=== PATIENT | female | born 1975 | race African-American/Black ===

== ENCOUNTER 2018-03-02 13:20 | Inpatient (IN) | payer OTHER ==
[~2018-03-02] VITALS: Ht 170.2 cm; Wt 99.3 kg
[~2018-03-02 13:20] MED LIST: DOCU-109 PO; HYDR-2758 PO; NAPR220T70 PO; ONDA4TAB10 SL; OXYC-323 PO
--- NOTE | 2018-03-02 13:54 | RAD ---
Portable chest, 03/02/2018: HISTORY: Chest pain, SVT The heart size and pulmonary vascularity are normal. No pulmonary infiltrate is seen. There is no evidence of pleural fluid. IMPRESSION: No acute cardiopulmonary abnormality is detected. Electronically signed by: Beny Perez MD (03/02/2018 1:51 PM) [facility]
--- NOTE | 2018-03-02 13:58 | EKG ---
[facility] [address] [place] [address] Test Date: 2018-03-02 Test Time: 13:27:14 Pat Name: EUGENIO GURROLA Department: Room: Gender: F Detective Sergeant: : 1975 Requested By: RAJESH FAYE Order Number: [id number] Reading MD: Hu Fam Measurements Intervals [place] Rate: 90 P: 54 UT: 146 QRS: 61 QRSD: 80 T: 28 QT: 350 QTc: 432 Interpretive Statements SINUS RHYTHM NORMAL ECG No previous ECG available for comparison Electronically Signed On 03-03-2018 11:27:26 CDT by Hu Fam
[2018-03-02 13:59] LABS: BARBITURATES NEG (NEG); BENZODIAZEPINES NEG (NEG); CANNABINOIDS NEG (NEG); COCAINE NEG (NEG); METHADONE NEG (NEG); OPIATES NEG (NEG); PHENCYCLIDINE NEG (NEG)
[2018-03-02] MEDS ORDERED: ASPIRIN CHEWABLE 81 MG TABLET. PO ONE (14:00)
[2018-03-02] MEDS ORDERED: IV NORMAL SALINE 500ML BAG 500 ML IV ONE (14:00)
[2018-03-02 14:01] LABS: AMPHETAMINE/METHAMPHETAMINE NEG (NEG)
[2018-03-02 14:15] LABS: BASO % 1 % (0-3); EOS # 0.1 x10^3/uL (0.0-0.7); EOS % 1 % (0-3); HEMATOCRIT 37.5 % (36.0-47.0); LYMPH # 1.9 x10^3/uL (1.0-4.8); LYMPH % 34 % (24-48); MEAN CORPUSCULAR HEMOGLOBIN 28 pg (25-35); MEAN CORPUSCULAR HGB CONC 35 g/dL (31-37); MEAN CORPUSCULAR VOLUME 81 fL (79-100); MONO # 0.4 x10^3/uL (0.0-1.1); MONO % 7 % (0-9); NEUT # 3.1 x10^3uL (1.8-7.7); NEUT % 57 % (31-73); PLATELET COUNT 234 x10^3/uL (140-400); RED BLOOD COUNT 4.62 x10^6/uL (3.50-5.40); RED CELL DISTRIBUTION WIDTH 13.7 % (11.5-14.5); WHITE BLOOD COUNT 5.5 x10^3/uL (4.0-11.0)
--- NOTE | 2018-03-02 14:21 | PHYS DOC ---
Past Medical History Past Medical History: No Pertinent History Past Surgical History: Oophorectomy Additional Past Surgical Histo: Rt hip Additional Information: Denies smoking Alcohol Use: None Drug Use: None Adult General Chief Complaint Chief Complaint: palpitation and chest pain HPI HPI Patient is a 42 year old female who was in by EMS because of chest pain and palpitation. Patient states she was driving and suddenly felt a pause in her heart and then had palpitation with substernal chest pain, shortness of breath, lightheadedness and dizziness that last about 5 minutes before arrival of EMS. EMS reported that patient had SVT with heart of 220 that resolved with Valsalva maneuver to sinus rhythm. She denies history of any medical problems or previous palpitation and using drugs and alcohol or recent dehydration. Patient stated her pain was 9 daily episodes of SVT and dropped to 5 at arrival to ER. Review of Systems Review of Systems Constitutional: Denies fever or chills [] Eyes: Denies change in visual acuity, redness, or eye pain [] HENT: Denies nasal congestion or sore throat [] Respiratory: Denies cough or shortness of breath [] Cardiovascular: No additional information not addressed in HPI [] GI: Denies abdominal pain, nausea, vomiting, bloody stools or diarrhea [] : Denies dysuria or hematuria [] Musculoskeletal: Denies back pain or joint pain [] Integument: Denies rash or skin lesions [] Neurologic: Denies headache, focal weakness or sensory changes [] Endocrine: Denies polyuria or polydipsia [] All other systems were reviewed and found to be within normal limits, except as documented in this note. Current Medications Current Medications Current Medications Medications (Trade) Dose Ordered Sig/Eze Start Time Stop Time Status Last Admin Dose Admin Aspirin (Children'S Aspirin) 324 mg 1X ONCE 03/02/18 14:00 03/02/18 14:05 DC 03/02/18 14:40 324 MG Sodium Chloride 500 ml @ 500 mls/hr 1X ONCE 03/02/18 14:00 03/02/18 14:59 DC 03/02/18 14:40 500 MLS/HR Allergies Allergies Allergies Coded Allergies Type Severity Reaction Last Updated Verified No Known Drug Allergies 01/10/15 No Physical Exam Physical Exam Constitutional: Well developed, well nourished, mild distress, non-toxic appearance. [] HENT: Normocephalic, atraumatic, bilateral external ears normal, oropharynx moist, no oral exudates, nose normal. [] Eyes: PERRLA, EOMI, conjunctiva normal, no discharge. [] Neck: Normal range of motion, no tenderness, supple, no stridor. [] Cardiovascular:Heart rate regular rhythm, no murmur [] Lungs & Thorax: Bilateral breath sounds clear to auscultation [] Abdomen: Bowel sounds normal, soft, no tenderness, no masses, no pulsatile masses. [] Skin: Warm, dry, no erythema, no rash. [] Back: No tenderness, no CVA tenderness. [] Extremities: No tenderness, no cyanosis, no clubbing, ROM intact, no edema. [] Neurologic: Alert and oriented X 3, normal motor function, normal sensory function, no focal deficits noted. [] Psychologic: Affect normal, judgement normal, mood normal. [] Current Patient Data Lab Values Laboratory Tests Test 03/02/18 13:35 03/02/18 13:46 03/02/18 14:00 Urine Opiates Screen Neg (NEG) Urine Methadone Screen Neg (NEG) Urine Barbiturates Neg (NEG) Urine Phencyclidine Screen Neg (NEG) Urine Amphetamine/Methamphetamine Neg (NEG) Urine Benzodiazepines Screen Neg (NEG) Urine Cocaine Screen Neg (NEG) Urine Cannabinoids Screen Neg (NEG) Urine Ethyl Alcohol Neg (NEG) POC Urine HCG, Qualitative Hcg negative (Negative) White Blood Count 5.5 x10^3/uL (4.0-11.0) Red Blood Count 4.62 x10^6/uL (3.50-5.40) Hemoglobin 13.0 g/dL (12.0-15.5) Hematocrit 37.5 % (36.0-47.0) Mean Corpuscular Volume 81 fL (79-100) Mean Corpuscular Hemoglobin 28 pg (25-35) Mean Corpuscular Hemoglobin Concent 35 g/dL (31-37) Red Cell Distribution Width 13.7 % (11.5-14.5) Platelet Count 234 x10^3/uL (140-400) Neutrophils (%) (Auto) 57 % (31-73) Lymphocytes (%) (Auto) 34 % (24-48) Monocytes (%) (Auto) 7 % (0-9) Eosinophils (%) (Auto) 1 % (0-3) Basophils (%) (Auto) 1 % (0-3) Neutrophils # (Auto) 3.1 x10^3uL (1.8-7.7) Lymphocytes # (Auto) 1.9 x10^3/uL (1.0-4.8) Monocytes # (Auto) 0.4 x10^3/uL (0.0-1.1) Eosinophils # (Auto) 0.1 x10^3/uL (0.0-0.7) Basophils # (Auto) 0.0 x10^3/uL (0.0-0.2) Prothrombin Time 12.6 SEC (11.7-14.0) Prothrombin Time INR 1.0 (0.8-1.1) Sodium Level 141 mmol/L (136-145) Potassium Level 3.5 mmol/L (3.5-5.1) Chloride Level 106 mmol/L (98-107) Carbon Dioxide Level 21 mmol/L (21-32) Anion Gap 14 (6-14) Blood Urea Nitrogen 11 mg/dL (7-20) Creatinine 1.0 mg/dL (0.6-1.0) Estimated GFR (Cockcroft-Gault) 72.9 BUN/Creatinine Ratio 11 (6-20) Glucose Level 104 mg/dL (70-99) H Calcium Level 9.0 mg/dL (8.5-10.1) Magnesium Level 1.9 mg/dL (1.8-2.4) Total Bilirubin 0.4 mg/dL (0.2-1.0) Aspartate Amino Transferase (AST) 18 U/L (15-37) Alanine Aminotransferase (ALT) 32 U/L (14-59) Alkaline Phosphatase 91 U/L (46-116) Creatine Kinase 116 U/L (26-192) Troponin I Quantitative < 0.017 ng/mL (0.000-0.055) Total Protein 8.1 g/dL (6.4-8.2) Albumin 3.9 g/dL (3.4-5.0) Albumin/Globulin Ratio 0.9 (1.0-1.7) L Laboratory Tests 03/02/18 14:00 Laboratory Tests 03/02/18 14:00 EKG EKG Interpreted by me. EKG at 1327 showed normal sinus rhythm at rate of 90, no acute ST-T wave abnormality Radiology/Procedures Radiology/Procedures [facility] [address] [place] [address] IMAGING REPORT Signed PATIENT: EUGENIO GURROLA ACCOUNT: [id number] : 1975 LOCATION: ER AGE: 42 SEX: F EXAM STATUS: PRE ER ORD. PHYSICIAN: RAJESH FAYE MD REASON: SVT and chest pain PROCEDURE: PORTABLE CHEST 1V Portable chest, 03/02/2018: HISTORY: Chest pain, SVT The heart size and pulmonary vascularity are normal. No pulmonary infiltrate is seen. There is no evidence of pleural fluid. IMPRESSION: No acute cardiopulmonary abnormality is detected. Electronically signed by: Beny Perez MD (03/02/2018 1:51 PM) [facility] DICTATED and SIGNED BY: BENY PEREZ MD DATE: 03/02/18 1350 Course & Med Decision Making Course & Med Decision Making Pertinent Labs and Imaging studies reviewed. (See chart for details) Evaluation of patient in ER showed 42-year-old female patient with sudden onset of palpitation and chest pain onset of SVT that converted to normal sinus rhythm with Valsalva maneuver given by EMS. Patient continued to complaining of chest pain while she was in ER. Labs and EKG and chest x-ray was unremarkable. Plan to admit the patient because of acute chest pain and SVT. Dr. John accepted admission at 1500. Dragon Disclaimer Dragon Disclaimer This electronic medical record was generated, in whole or in part, using a voice recognition dictation system. Departure Departure Impression: Primary Impression: Acute chest pain Additional Impression: SVT (supraventricular tachycardia) Disposition: ADMITTED INPATIENT (@1500) Admitting Physician: [place] Condition: IMPROVED Referrals: NO PCP (PCP) Problem Qualifiers RAJESH FAYE MD Mar 02, 2018 14:21
[2018-03-02 14:25] LABS: GFR 72.9; POTASSIUM 3.5 mmol/L (3.5-5.1); PROTHROMBIN TIME PATIENT 12.6 SEC (11.7-14.0)
[2018-03-02 14:31] LABS: ALBUMIN 3.9 g/dL (3.4-5.0); ALBUMIN/GLOBULIN RATIO 0.9 (1.0-1.7); MAGNESIUM 1.9 mg/dL (1.8-2.4); TOTAL BILIRUBIN 0.4 mg/dL (0.2-1.0); TOTAL PROTEIN 8.1 g/dL (6.4-8.2)
[2018-03-02] MEDS ORDERED: NITROGLYCERIN SUBLINGUAL 0.4 MG BOTTLE OF 25. SL STA (15:10)
--- NOTE | 2018-03-02 15:14 | PDOC1 ---
History and Physical Date of Admission Date of Admission DATE: 03/02/18 TIME: 15:10 Identification/Chief Complaint Chief Complaint palpitations, lightheaded, dizzy Source Source: Caregiver, Chart review, Patient History of Present Illness History of Present Illness pleasant 42-year-old female no known past medical history, does not take any meds at home, no smoking, no alcohol, no street drugs, no known drug allergies, no significant surgical history. Family history of CAD, father at age 70s, was driving, felt palpitations lightheaded dizzy. EMS was called, 200 heart rate with SVT. Some chest pains at the emergency room. All labs and EKG reassuring vital signs okay. NSR at ER. Admitted because of SVT first episode. Not a heavy caffeine drinker. Past Medical History Cardiovascular: No pertinent hx Pulmonary: No pertinent hx GI: No pertinent hx Heme/Onc: No pertinent hx Hepatobiliary: No pertinent hx Psych: No pertinent hx Rheumatologic: No pertinent hx Infectious disease: No pertinent hx ENT: No pertinent hx Renal/: No pertinent hx Endocrine: No pertinent hx Dermatology: No pertinent hx Past Surgical History Past Surgical History: No pertinent history Family History Family History: Heart Disease Social History Smoke: No ALCOHOL: none Drugs: None Current Medications Current Medications Current Medications Aspirin (Children'S Aspirin) 324 mg 1X ONCE PO Last administered on 03/02/18at 14:40; Start 03/02/18 at 14:00; Stop 03/02/18 at 14:05; Status DC Sodium Chloride 500 ml @ 500 mls/hr 1X ONCE IV Last administered on at 14:40; Start 03/02/18 at 14:00; Stop 03/02/18 at 14:59; Status DC Active Scripts Active Reported Colace (Docusate Sodium) 100 Mg Capsule 100 Mg PO BID Zofran Odt (Ondansetron) 4 Mg Tab.rapdis 1 Tab SL TID PRN Percocet 5-325 Mg Tablet (Oxycodone/Acetaminophen) 1 Each Tablet 2 Tab PO PRN Q6HRS PRN Allergies Allergies: Coded Allergies: No Known Drug Allergies (Unverified , 01/10/15) ROS Review of System As per history of present illness, the rest of ROS 14 point negative Physical Exam General: Alert, Oriented X3, Cooperative, No acute distress HEENT: Atraumatic, PERRLA, EOMI Lungs: Clear to auscultation, Normal air movement Heart: S1S2, RRR, no thrills, no rubs, no gallops, no murmurs Cardiovascular: S1, S2 Breasts: Normal, Rt breast nml w/o mass, Lt breast nml w/o mass, Nipples normal Abdomen: Normal bowel sounds, Soft, No tenderness, No hepatosplenomegaly, No masses Extremities: No clubbing, No cyanosis, No edema, Normal pulses, No tenderness/ swelling Skin: No rashes, No breakdown, No significant lesion Neuro: Normal gait, Normal speech, Strength at 5/5 X4 ext, Normal tone, Sensation intact, Cranial nerves 3-12 NL, Reflexes 2+ Psych/Mental Status: Mental status NL, Mood NL Labs Labs Laboratory Tests Test 03/02/18 13:35 03/02/18 13:46 03/02/18 14:00 Urine Opiates Screen Neg (NEG) Urine Methadone Screen Neg (NEG) Urine Barbiturates Neg (NEG) Urine Phencyclidine Screen Neg (NEG) Urine Amphetamine/Methamphetamine Neg (NEG) Urine Benzodiazepines Screen Neg (NEG) Urine Cocaine Screen Neg (NEG) Urine Cannabinoids Screen Neg (NEG) Urine Ethyl Alcohol Neg (NEG) Bedside Urine HCG, Qualitative Hcg negative (Negative) White Blood Count 5.5 x10^3/uL (4.0-11.0) Red Blood Count 4.62 x10^6/uL (3.50-5.40) Hemoglobin 13.0 g/dL (12.0-15.5) Hematocrit 37.5 % (36.0-47.0) Mean Corpuscular Volume 81 fL (79-100) Mean Corpuscular Hemoglobin 28 pg (25-35) Mean Corpuscular Hemoglobin Concent 35 g/dL (31-37) Red Cell Distribution Width 13.7 % (11.5-14.5) Platelet Count 234 x10^3/uL (140-400) Neutrophils (%) (Auto) 57 % (31-73) Lymphocytes (%) (Auto) 34 % (24-48) Monocytes (%) (Auto) 7 % (0-9) Eosinophils (%) (Auto) 1 % (0-3) Basophils (%) (Auto) 1 % (0-3) Neutrophils # (Auto) 3.1 x10^3uL (1.8-7.7) Lymphocytes # (Auto) 1.9 x10^3/uL (1.0-4.8) Monocytes # (Auto) 0.4 x10^3/uL (0.0-1.1) Eosinophils # (Auto) 0.1 x10^3/uL (0.0-0.7) Basophils # (Auto) 0.0 x10^3/uL (0.0-0.2) Prothrombin Time 12.6 SEC (11.7-14.0) Prothromb Time International Ratio 1.0 (0.8-1.1) Sodium Level 141 mmol/L (136-145) Potassium Level 3.5 mmol/L (3.5-5.1) Chloride Level 106 mmol/L (98-107) Carbon Dioxide Level 21 mmol/L (21-32) Anion Gap 14 (6-14) Blood Urea Nitrogen 11 mg/dL (7-20) Creatinine 1.0 mg/dL (0.6-1.0) Estimated GFR (Cockcroft-Gault) 72.9 BUN/Creatinine Ratio 11 (6-20) Glucose Level 104 mg/dL (70-99) Calcium Level 9.0 mg/dL (8.5-10.1) Magnesium Level 1.9 mg/dL (1.8-2.4) Total Bilirubin 0.4 mg/dL (0.2-1.0) Aspartate Amino Transf (AST/SGOT) 18 U/L (15-37) Alanine Aminotransferase (ALT/SGPT) 32 U/L (14-59) Alkaline Phosphatase 91 U/L (46-116) Creatine Kinase 116 U/L (26-192) Troponin I Quantitative < 0.017 ng/mL (0.000-0.055) Total Protein 8.1 g/dL (6.4-8.2) Albumin 3.9 g/dL (3.4-5.0) Albumin/Globulin Ratio 0.9 (1.0-1.7) Laboratory Tests Test 03/02/18 13:35 03/02/18 13:46 03/02/18 14:00 Urine Opiates Screen Neg (NEG) Urine Methadone Screen Neg (NEG) Urine Barbiturates Neg (NEG) Urine Phencyclidine Screen Neg (NEG) Urine Amphetamine/Methamphetamine Neg (NEG) Urine Benzodiazepines Screen Neg (NEG) Urine Cocaine Screen Neg (NEG) Urine Cannabinoids Screen Neg (NEG) Urine Ethyl Alcohol Neg (NEG) Bedside Urine HCG, Qualitative Hcg negative (Negative) White Blood Count 5.5 x10^3/uL (4.0-11.0) Red Blood Count 4.62 x10^6/uL (3.50-5.40) Hemoglobin 13.0 g/dL (12.0-15.5) Hematocrit 37.5 % (36.0-47.0) Mean Corpuscular Volume 81 fL (79-100) Mean Corpuscular Hemoglobin 28 pg (25-35) Mean Corpuscular Hemoglobin Concent 35 g/dL (31-37) Red Cell Distribution Width 13.7 % (11.5-14.5) Platelet Count 234 x10^3/uL (140-400) Neutrophils (%) (Auto) 57 % (31-73) Lymphocytes (%) (Auto) 34 % (24-48) Monocytes (%) (Auto) 7 % (0-9) Eosinophils (%) (Auto) 1 % (0-3) Basophils (%) (Auto) 1 % (0-3) Neutrophils # (Auto) 3.1 x10^3uL (1.8-7.7) Lymphocytes # (Auto) 1.9 x10^3/uL (1.0-4.8) Monocytes # (Auto) 0.4 x10^3/uL (0.0-1.1) Eosinophils # (Auto) 0.1 x10^3/uL (0.0-0.7) Basophils # (Auto) 0.0 x10^3/uL (0.0-0.2) Prothrombin Time 12.6 SEC (11.7-14.0) Prothromb Time International Ratio 1.0 (0.8-1.1) Sodium Level 141 mmol/L (136-145) Potassium Level 3.5 mmol/L (3.5-5.1) Chloride Level 106 mmol/L (98-107) Carbon Dioxide Level 21 mmol/L (21-32) Anion Gap 14 (6-14) Blood Urea Nitrogen 11 mg/dL (7-20) Creatinine 1.0 mg/dL (0.6-1.0) Estimated GFR (Cockcroft-Gault) 72.9 BUN/Creatinine Ratio 11 (6-20) Glucose Level 104 mg/dL (70-99) Calcium Level 9.0 mg/dL (8.5-10.1) Magnesium Level 1.9 mg/dL (1.8-2.4) Total Bilirubin 0.4 mg/dL (0.2-1.0) Aspartate Amino Transf (AST/SGOT) 18 U/L (15-37) Alanine Aminotransferase (ALT/SGPT) 32 U/L (14-59) Alkaline Phosphatase 91 U/L (46-116) Creatine Kinase 116 U/L (26-192) Troponin I Quantitative < 0.017 ng/mL (0.000-0.055) Total Protein 8.1 g/dL (6.4-8.2) Albumin 3.9 g/dL (3.4-5.0) Albumin/Globulin Ratio 0.9 (1.0-1.7) VTE Prophylaxis Ordered VTE Prophylaxis Devices: Yes VTE Pharmacological Prophylaxi: Yes Assessment/Plan Assessment/Plan SVT transient, resolved on its own Chest pains Diaphoresis, lightheaded, dizzy, chest pains Plan: Admit CVC Hook t youth nutritional monitor cards consulted Check TSH Trend troponin Cardiac diet now been nothing by mouth post midnight in case MPI which is likely dw with family seen at LUIS RODRIGUEZ MD Mar 02, 2018 15:14
[2018-03-02] MEDS ORDERED: ONDANSETRON ODT 4 MG TAB.RAPDIS. PO PRN (15:15)
[2018-03-02] MEDS ORDERED: IBUPROFEN 200 MG TABLET. PO PRN (15:15)
[2018-03-02] MEDS ORDERED: ACETAMINOPHEN 500 MG TABLET PO PRN (15:15)
[2018-03-02] MEDS ORDERED: ACETAMINOPHEN/CODEINE 300/30MG TABLET. PO PRN (15:15)
[2018-03-02] MEDS ORDERED: CALCIUM CARBONATE 500 MG TAB.CHEW PO PRN (15:15)
[2018-03-02] MEDS ORDERED: ONDANSETRON PF 4 MG/2 ML VIAL. IV PRN (15:15)
[2018-03-02] MEDS ORDERED: MORPHINE SULFATE 2 MG/ML VIAL. IV PRN (15:15)
[2018-03-02] MEDS ORDERED: ZOLPIDEM 5 MG TABLET. PO PRN (15:15)
[2018-03-02 16:05] VITALS: BP 145/103
[2018-03-02] MEDS ORDERED: IBUPROFEN 600 MG TABLET. PO PRN (19:45)
[2018-03-02 23:25] VITALS: BP 141/89
[2018-03-03 03:15] VITALS: BP 135/84
[2018-03-03 07:00] VITALS: BP 141/92
[2018-03-03] MEDS ORDERED: ASPIRIN 325 MG TABLET PO SCH (08:00)
--- NOTE | 2018-03-03 10:07 | PDOC2 ---
CARDIAC CONSULT DATE OF CONSULT Date of Consult DATE: 03/03/18 TIME: 10:05 REASON FOR CONSULT Reason for Consult: SVT REFERRING PHYSICIAN Referring Physician: Alvaro SOURCE Source: Chart review, Patient HISTORY OF PRESENT ILLNESS HISTORY OF PRESENT ILLNESS 42 year old female who was driving home from [place] yesterday and developed dizziness, lightheadedness, chest tightness and numbness and tingling in her arms. EMS contacted by parts driver of another car. Reportedly with SVT that converted with vagal manuevers, however, no supporting rhythm strips for review. EMS records obtained, but no rhythm strips attached; reports SVT with rate of 178. No previous similar symptoms. EKG with NSR. Troponin levels not consistent with AMI. Reason for Visit: tachydysrhythmias PAST MEDICAL HISTORY Cardiovascular: No pertinent hx Pulmonary: Other (none) GI: No pertinent hx Heme/Onc: No pertinent hx Hepatobiliary: No pertinent hx Psych: No pertinent hx Musculoskeletal: No pain Rheumatologic: No pertinent hx Infectious disease: No pertinent hx ENT: No pertinent hx Renal/: No pertinent hx Endocrine: No pertinent hx Dermatology: No pertinent hx PAST SURGICAL HISTORY Past Surgical History: Other (right oopherectomy; right hip and foot fractures with repair; left wrist fracture repair) FAMILY HISTORY Family History: Coronary Artery Disease (father dx in his 50s) SOCIAL HISTORY Smoke: No ALCOHOL: none Drugs: None Lives: Alone CURRENT MEDICATIONS CURRENT MEDICATIONS Current Medications Medications (Trade) Dose Ordered Sig/Eze Route PRN Reason Start Time Stop Time Status Last Admin Dose Admin Aspirin (Children'S Aspirin) 324 mg 1X ONCE PO 03/02/18 14:00 03/02/18 14:05 DC 03/02/18 14:40 Sodium Chloride 500 ml @ 500 mls/hr 1X ONCE IV 03/02/18 14:00 03/02/18 14:59 DC 03/02/18 14:40 ALLERGIES ALLERGIES: Coded Allergies: No Known Drug Allergies (Unverified , 01/10/15) ROS Review of System 10 point review with pertinent positives in HPI PHYSICAL EXAM General: Alert, Oriented X3, Cooperative, No acute distress HEENT: Atraumatic, PERRLA Lungs: Clear to auscultation, Normal air movement Heart: Regular rate, Normal S1, Normal S2, No murmurs, Other (no carotid bruits ) Abdomen: Normal bowel sounds, Soft, No tenderness Extremities: No edema, Normal pulses Skin: No rashes Neuro: Normal speech Psych/Mental Status: Mental status NL, Mood NL MUSCULOSKELETAL: No deformity VITALS VITALS Vital Signs Date Time Temp Pulse Resp B/P (MAP) Pulse Ox O2 Delivery O2 Flow Rate FiO2 03/03/18 09:03 Room Air 03/03/18 07:00 98.1 85 16 141/92 (108) 96 98.1 LABS Lab: Laboratory Tests Test 03/02/18 13:35 03/02/18 13:46 03/02/18 14:00 03/02/18 18:40 Urine Opiates Screen Neg (NEG) Urine Methadone Screen Neg (NEG) Urine Barbiturates Neg (NEG) Urine Phencyclidine Screen Neg (NEG) Urine Amphetamine/Methamphetamine Neg (NEG) Urine Benzodiazepines Screen Neg (NEG) Urine Cocaine Screen Neg (NEG) Urine Cannabinoids Screen Neg (NEG) Urine Ethyl Alcohol Neg (NEG) Bedside Urine HCG, Qualitative Hcg negative (Negative) White Blood Count 5.5 x10^3/uL (4.0-11.0) Red Blood Count 4.62 x10^6/uL (3.50-5.40) Hemoglobin 13.0 g/dL (12.0-15.5) Hematocrit 37.5 % (36.0-47.0) Mean Corpuscular Volume 81 fL (79-100) Mean Corpuscular Hemoglobin 28 pg (25-35) Mean Corpuscular Hemoglobin Concent 35 g/dL (31-37) Red Cell Distribution Width 13.7 % (11.5-14.5) Platelet Count 234 x10^3/uL (140-400) Neutrophils (%) (Auto) 57 % (31-73) Lymphocytes (%) (Auto) 34 % (24-48) Monocytes (%) (Auto) 7 % (0-9) Eosinophils (%) (Auto) 1 % (0-3) Basophils (%) (Auto) 1 % (0-3) Neutrophils # (Auto) 3.1 x10^3uL (1.8-7.7) Lymphocytes # (Auto) 1.9 x10^3/uL (1.0-4.8) Monocytes # (Auto) 0.4 x10^3/uL (0.0-1.1) Eosinophils # (Auto) 0.1 x10^3/uL (0.0-0.7) Basophils # (Auto) 0.0 x10^3/uL (0.0-0.2) Prothrombin Time 12.6 SEC (11.7-14.0) Prothromb Time International Ratio 1.0 (0.8-1.1) Sodium Level 141 mmol/L (136-145) Potassium Level 3.5 mmol/L (3.5-5.1) Chloride Level 106 mmol/L (98-107) Carbon Dioxide Level 21 mmol/L (21-32) Anion Gap 14 (6-14) Blood Urea Nitrogen 11 mg/dL (7-20) Creatinine 1.0 mg/dL (0.6-1.0) Estimated GFR (Cockcroft-Gault) 72.9 BUN/Creatinine Ratio 11 (6-20) Glucose Level 104 mg/dL (70-99) Calcium Level 9.0 mg/dL (8.5-10.1) Magnesium Level 1.9 mg/dL (1.8-2.4) Total Bilirubin 0.4 mg/dL (0.2-1.0) Aspartate Amino Transf (AST/SGOT) 18 U/L (15-37) Alanine Aminotransferase (ALT/SGPT) 32 U/L (14-59) Alkaline Phosphatase 91 U/L (46-116) Creatine Kinase 116 U/L (26-192) Troponin I Quantitative < 0.017 ng/mL (0.000-0.055) < 0.017 ng/mL (0.000-0.055) Total Protein 8.1 g/dL (6.4-8.2) Albumin 3.9 g/dL (3.4-5.0) Albumin/Globulin Ratio 0.9 (1.0-1.7) Thyroid Stimulating Hormone (TSH) 1.921 uIU/mL (0.358-3.74) Test 03/02/18 21:55 03/03/18 07:01 Troponin I Quantitative < 0.017 ng/mL (0.000-0.055) Glucose (Fingerstick) 97 mg/dL (70-99) IMAGES IMAGES CXR - no acute process EKG EKG SR; no acute changes ASSESSMENT/PLAN ASSESSMENT/PLAN 1. ? SVT --reported as such; no EMS rhythm strips to review; reportedly converted with valsalva maneuver --EKG = SR; no dysrhythmias on telemetry; event monitor vs ILR @ discharge to monitor rhythms --TTE to evaluate for valvular disease 2. chest pain --likely tachycardia mediated but with family history of early onset CAD; recommend MPI 3. elevated BP without diagnosis of HTN --recommend outpatient f/u with PCP for further monitoring JAMAICA HAMILTON APRN Mar 03, 2018 10:07
[2018-03-03] MEDS ORDERED: REGADENOSON 0.4 MG/5 ML DISP.SYRIN. IV ONE (10:15)
--- NOTE | 2018-03-03 11:43 | CARD ---
MR#: [id number] Date of Study: 03/03/2018 Ordering Physician: JAMAICA HAMILTON, Referring Physician: LUIS MCINTOSH Tech: Anabella Smith [facility] APPROVED REPORT EXAM: Two-dimensional and M-mode echocardiogram with Doppler and color Doppler. Other Information Quality : Good INDICATION Tachycardia 2D DIMENSIONS RVDd2.1 (2.9-3.5cm)Left Atrium(2D)3.1 (1.6-4.0cm) IVSd1.0 (0.7-1.1cm)Aortic Root(2D)2.7 (2.0-3.7cm) LVDd3.5 (3.9-5.9cm)LVOT Diameter1.9 (1.8-2.4cm) PWd1.0 (0.7-1.1cm)LVDs1.7 (2.5-4.0cm) FS (%) 30.0 %SV42.6 ml LVEF(%)60.0 (>50%) Aortic Valve AoV Peak Jerrod.151.6cm/sAoV VTI26.3cm AO Peak GR.9.2mmHgLVOT Peak Jerrod.123.0cm/s LVOT VTI 23.45cmAO Mean GR.5mmHg FACUNDO (VMAX)2.65xl3UKI (VTI)2.52cm2 Mitral Valve MV E Dtkymjea96.3cm/sMV DECEL VQKE304ih MV A Aljnktrv39.0cm/sMV WEV65av E/A Ratio1.0MVA (PHT)3.50cm2 TDI E/Lateral E'8.0E/Medial E'14.1 Tricuspid Valve TR P. Unbpydmz016bx/sRAP EKJTNSUH0ldZc TR Peak Gr.96knPzTDVD77tzQz Pulmonary Vein S1 Phrttybo29.6cm/sD2 Jgzwolwj06.1cm/s LEFT VENTRICLE The left ventricle is normal size. There is normal left ventricular wall thickness. The left ventricu lar systolic function is normal. The Ejection Fraction is 55-60%. There is normal LV segmental wall m otion. The left ventricular diastolic function and filling is normal for age. RIGHT VENTRICLE The right ventricle is normal size. The right ventricular systolic function is normal. ATRIA The left atrium size is normal. The right atrium size is normal. The interatrial septum is intact wit h no evidence for an atrial septal defect or patent foramen ovale as noted on 2-D or Doppler imaging. AORTIC VALVE The aortic valve is normal in structure and function. Doppler and Color Flow revealed trace to mild e ccentric aortic regurgitation. There is no significant aortic valvular stenosis. There is no aortic v alvular vegetation. MITRAL VALVE The mitral valve is normal in structure and function. There is no evidence of mitral valve prolapse. There is no mitral valve stenosis. Doppler and Color-flow revealed trace mitral regurgitation. TRICUSPID VALVE The tricuspid valve is normal in structure and function. Doppler and Color Flow revealed trace tricus pid regurgitation. The PA pressure was estimated at 21 mmHg. There is no tricuspid valve stenosis. PULMONIC VALVE The pulmonary valve is normal in structure and function. Doppler and Color Flow revealed mild pulmoni c valvular regurgitation. There is no pulmonic valvular stenosis. GREAT VESSELS The aortic root is normal in size. The ascending aorta is normal in size. The IVC is normal in size a nd collapses >50% with inspiration. PERICARDIAL EFFUSION There is no evidence of significant pericardial effusion. Critical Notification Critical Value: No <Conclusion> The left ventricular systolic function is normal. The Ejection Fraction is 55-60%. There is normal LV segmental wall motion. Trace to mild eccentric aortic regurgitation. Trace mitral regurgitation. Trace tricuspid regurgitation. The PA pressure was estimated at 21 mmHg. There is no evidence of significant pericardial effusion. Signed by : Hu Fam, Electronically Approved : 03/03/2018 11:41:25
--- NOTE | 2018-03-03 11:49 | PDOC ---
PROGRESS NOTES Chief Complaint Chief Complaint Angina History of Present Illness History of Present Illness Pt seen and examined. She endorses a family history of CAD. She denies tobacco use and denies any history of T2DM. Pt alert and oriented, NAD; affect appropriate VSS DW nursing Vitals Vitals Vital Signs Date Time Temp Pulse Resp B/P (MAP) Pulse Ox O2 Delivery O2 Flow Rate FiO2 03/03/18 09:03 Room Air 03/03/18 07:00 98.1 85 16 141/92 (108) 96 98.1 Physical Exam General: Alert, Oriented X3, Cooperative, No acute distress Heart: Regular rate Abdomen: Normal bowel sounds, Soft, No tenderness, No hepatosplenomegaly, No masses Extremities: No clubbing, No cyanosis, No edema, Normal pulses, No tenderness/ swelling Skin: No rashes, No breakdown, No significant lesion Labs LABS Laboratory Tests Test 03/02/18 13:35 03/02/18 13:46 03/02/18 14:00 03/02/18 18:40 Urine Opiates Screen Neg (NEG) Urine Methadone Screen Neg (NEG) Urine Barbiturates Neg (NEG) Urine Phencyclidine Screen Neg (NEG) Urine Amphetamine/Methamphetamine Neg (NEG) Urine Benzodiazepines Screen Neg (NEG) Urine Cocaine Screen Neg (NEG) Urine Cannabinoids Screen Neg (NEG) Urine Ethyl Alcohol Neg (NEG) Bedside Urine HCG, Qualitative Hcg negative (Negative) White Blood Count 5.5 x10^3/uL (4.0-11.0) Red Blood Count 4.62 x10^6/uL (3.50-5.40) Hemoglobin 13.0 g/dL (12.0-15.5) Hematocrit 37.5 % (36.0-47.0) Mean Corpuscular Volume 81 fL (79-100) Mean Corpuscular Hemoglobin 28 pg (25-35) Mean Corpuscular Hemoglobin Concent 35 g/dL (31-37) Red Cell Distribution Width 13.7 % (11.5-14.5) Platelet Count 234 x10^3/uL (140-400) Neutrophils (%) (Auto) 57 % (31-73) Lymphocytes (%) (Auto) 34 % (24-48) Monocytes (%) (Auto) 7 % (0-9) Eosinophils (%) (Auto) 1 % (0-3) Basophils (%) (Auto) 1 % (0-3) Neutrophils # (Auto) 3.1 x10^3uL (1.8-7.7) Lymphocytes # (Auto) 1.9 x10^3/uL (1.0-4.8) Monocytes # (Auto) 0.4 x10^3/uL (0.0-1.1) Eosinophils # (Auto) 0.1 x10^3/uL (0.0-0.7) Basophils # (Auto) 0.0 x10^3/uL (0.0-0.2) Prothrombin Time 12.6 SEC (11.7-14.0) Prothromb Time International Ratio 1.0 (0.8-1.1) Sodium Level 141 mmol/L (136-145) Potassium Level 3.5 mmol/L (3.5-5.1) Chloride Level 106 mmol/L (98-107) Carbon Dioxide Level 21 mmol/L (21-32) Anion Gap 14 (6-14) Blood Urea Nitrogen 11 mg/dL (7-20) Creatinine 1.0 mg/dL (0.6-1.0) Estimated GFR (Cockcroft-Gault) 72.9 BUN/Creatinine Ratio 11 (6-20) Glucose Level 104 mg/dL (70-99) Calcium Level 9.0 mg/dL (8.5-10.1) Magnesium Level 1.9 mg/dL (1.8-2.4) Total Bilirubin 0.4 mg/dL (0.2-1.0) Aspartate Amino Transf (AST/SGOT) 18 U/L (15-37) Alanine Aminotransferase (ALT/SGPT) 32 U/L (14-59) Alkaline Phosphatase 91 U/L (46-116) Creatine Kinase 116 U/L (26-192) Troponin I Quantitative < 0.017 ng/mL (0.000-0.055) < 0.017 ng/mL (0.000-0.055) Total Protein 8.1 g/dL (6.4-8.2) Albumin 3.9 g/dL (3.4-5.0) Albumin/Globulin Ratio 0.9 (1.0-1.7) Thyroid Stimulating Hormone (TSH) 1.921 uIU/mL (0.358-3.74) Test 03/02/18 21:55 03/03/18 07:01 Troponin I Quantitative < 0.017 ng/mL (0.000-0.055) Glucose (Fingerstick) 97 mg/dL (70-99) Review of Systems Review of Systems Pt denies angina, SOB. Assessment and Plan Assessmemt and Plan Problems Medical Problems: (1) Acute chest pain Status: Acute Plan: Serial enzymes Serial EKGs Consult cardiology Cardiac monitoring ASA Monitor labs Continue current diet Comment Review of Relevant I have reviewed the following items chayito (where applicable) has been applied. Labs Laboratory Tests Test 03/02/18 13:35 03/02/18 13:46 03/02/18 14:00 03/02/18 18:40 Urine Opiates Screen Neg (NEG) Urine Methadone Screen Neg (NEG) Urine Barbiturates Neg (NEG) Urine Phencyclidine Screen Neg (NEG) Urine Amphetamine/Methamphetamine Neg (NEG) Urine Benzodiazepines Screen Neg (NEG) Urine Cocaine Screen Neg (NEG) Urine Cannabinoids Screen Neg (NEG) Urine Ethyl Alcohol Neg (NEG) Bedside Urine HCG, Qualitative Hcg negative (Negative) White Blood Count 5.5 x10^3/uL (4.0-11.0) Red Blood Count 4.62 x10^6/uL (3.50-5.40) Hemoglobin 13.0 g/dL (12.0-15.5) Hematocrit 37.5 % (36.0-47.0) Mean Corpuscular Volume 81 fL (79-100) Mean Corpuscular Hemoglobin 28 pg (25-35) Mean Corpuscular Hemoglobin Concent 35 g/dL (31-37) Red Cell Distribution Width 13.7 % (11.5-14.5) Platelet Count 234 x10^3/uL (140-400) Neutrophils (%) (Auto) 57 % (31-73) Lymphocytes (%) (Auto) 34 % (24-48) Monocytes (%) (Auto) 7 % (0-9) Eosinophils (%) (Auto) 1 % (0-3) Basophils (%) (Auto) 1 % (0-3) Neutrophils # (Auto) 3.1 x10^3uL (1.8-7.7) Lymphocytes # (Auto) 1.9 x10^3/uL (1.0-4.8) Monocytes # (Auto) 0.4 x10^3/uL (0.0-1.1) Eosinophils # (Auto) 0.1 x10^3/uL (0.0-0.7) Basophils # (Auto) 0.0 x10^3/uL (0.0-0.2) Prothrombin Time 12.6 SEC (11.7-14.0) Prothromb Time International Ratio 1.0 (0.8-1.1) Sodium Level 141 mmol/L (136-145) Potassium Level 3.5 mmol/L (3.5-5.1) Chloride Level 106 mmol/L (98-107) Carbon Dioxide Level 21 mmol/L (21-32) Anion Gap 14 (6-14) Blood Urea Nitrogen 11 mg/dL (7-20) Creatinine 1.0 mg/dL (0.6-1.0) Estimated GFR (Cockcroft-Gault) 72.9 BUN/Creatinine Ratio 11 (6-20) Glucose Level 104 mg/dL (70-99) Calcium Level 9.0 mg/dL (8.5-10.1) Magnesium Level 1.9 mg/dL (1.8-2.4) Total Bilirubin 0.4 mg/dL (0.2-1.0) Aspartate Amino Transf (AST/SGOT) 18 U/L (15-37) Alanine Aminotransferase (ALT/SGPT) 32 U/L (14-59) Alkaline Phosphatase 91 U/L (46-116) Creatine Kinase 116 U/L (26-192) Troponin I Quantitative < 0.017 ng/mL (0.000-0.055) < 0.017 ng/mL (0.000-0.055) Total Protein 8.1 g/dL (6.4-8.2) Albumin 3.9 g/dL (3.4-5.0) Albumin/Globulin Ratio 0.9 (1.0-1.7) Thyroid Stimulating Hormone (TSH) 1.921 uIU/mL (0.358-3.74) Test 03/02/18 21:55 03/03/18 07:01 Troponin I Quantitative < 0.017 ng/mL (0.000-0.055) Glucose (Fingerstick) 97 mg/dL (70-99) Laboratory Tests Test 03/02/18 13:35 03/02/18 13:46 03/02/18 14:00 03/02/18 18:40 Urine Opiates Screen Neg (NEG) Urine Methadone Screen Neg (NEG) Urine Barbiturates Neg (NEG) Urine Phencyclidine Screen Neg (NEG) Urine Amphetamine/Methamphetamine Neg (NEG) Urine Benzodiazepines Screen Neg (NEG) Urine Cocaine Screen Neg (NEG) Urine Cannabinoids Screen Neg (NEG) Urine Ethyl Alcohol Neg (NEG) Bedside Urine HCG, Qualitative Hcg negative (Negative) White Blood Count 5.5 x10^3/uL (4.0-11.0) Red Blood Count 4.62 x10^6/uL (3.50-5.40) Hemoglobin 13.0 g/dL (12.0-15.5) Hematocrit 37.5 % (36.0-47.0) Mean Corpuscular Volume 81 fL (79-100) Mean Corpuscular Hemoglobin 28 pg (25-35) Mean Corpuscular Hemoglobin Concent 35 g/dL (31-37) Red Cell Distribution Width 13.7 % (11.5-14.5) Platelet Count 234 x10^3/uL (140-400) Neutrophils (%) (Auto) 57 % (31-73) Lymphocytes (%) (Auto) 34 % (24-48) Monocytes (%) (Auto) 7 % (0-9) Eosinophils (%) (Auto) 1 % (0-3) Basophils (%) (Auto) 1 % (0-3) Neutrophils # (Auto) 3.1 x10^3uL (1.8-7.7) Lymphocytes # (Auto) 1.9 x10^3/uL (1.0-4.8) Monocytes # (Auto) 0.4 x10^3/uL (0.0-1.1) Eosinophils # (Auto) 0.1 x10^3/uL (0.0-0.7) Basophils # (Auto) 0.0 x10^3/uL (0.0-0.2) Prothrombin Time 12.6 SEC (11.7-14.0) Prothromb Time International Ratio 1.0 (0.8-1.1) Sodium Level 141 mmol/L (136-145) Potassium Level 3.5 mmol/L (3.5-5.1) Chloride Level 106 mmol/L (98-107) Carbon Dioxide Level 21 mmol/L (21-32) Anion Gap 14 (6-14) Blood Urea Nitrogen 11 mg/dL (7-20) Creatinine 1.0 mg/dL (0.6-1.0) Estimated GFR (Cockcroft-Gault) 72.9 BUN/Creatinine Ratio 11 (6-20) Glucose Level 104 mg/dL (70-99) Calcium Level 9.0 mg/dL (8.5-10.1) Magnesium Level 1.9 mg/dL (1.8-2.4) Total Bilirubin 0.4 mg/dL (0.2-1.0) Aspartate Amino Transf (AST/SGOT) 18 U/L (15-37) Alanine Aminotransferase (ALT/SGPT) 32 U/L (14-59) Alkaline Phosphatase 91 U/L (46-116) Creatine Kinase 116 U/L (26-192) Troponin I Quantitative < 0.017 ng/mL (0.000-0.055) < 0.017 ng/mL (0.000-0.055) Total Protein 8.1 g/dL (6.4-8.2) Albumin 3.9 g/dL (3.4-5.0) Albumin/Globulin Ratio 0.9 (1.0-1.7) Thyroid Stimulating Hormone (TSH) 1.921 uIU/mL (0.358-3.74) Test 03/02/18 21:55 03/03/18 07:01 Troponin I Quantitative < 0.017 ng/mL (0.000-0.055) Glucose (Fingerstick) 97 mg/dL (70-99) Medications Current Medications Aspirin (Children'S Aspirin) 324 mg 1X ONCE PO Last administered on 03/02/18at 14:40; Start 03/02/18 at 14:00; Stop 03/02/18 at 14:05; Status DC Sodium Chloride 500 ml @ 500 mls/hr 1X ONCE IV Last administered on at 14:40; Start 03/02/18 at 14:00; Stop 03/02/18 at 14:59; Status DC Acetaminophen (Tylenol) 500 mg PRN Q6HRS PRN PO MILD PAIN / TEMP; Start at 15:15 Acetaminophen/ Codeine Phosphate (Tylenol #3) 1 tab PRN Q6HRS PRN PO MODERATE PAIN; Start 03/02/18 at 15:15 Morphine Sulfate (Morphine Sulfate) 2 mg PRN Q2HR PRN IV PAIN; Start 03/02/18 at 15:15 Ondansetron HCl (Zofran) 4 mg PRN Q6HRS PRN IV NAUSEA/VOMITING; Start 03/02/18 at 15:15 Ondansetron HCl (Zofran Odt) 4 mg PRN Q6HRS PRN PO NAUSEA/VOMITING; Start 03/02 at 15:15 Zolpidem Tartrate (Ambien) 5 mg PRN QHS PRN PO INSOMNIA; Start 03/02/18 at 15: 15 Calcium Carbonate/ Glycine (Tums) 500 mg PRN AFTMEALHC PRN PO INDIGESTION; Start 03/02/18 at 15:15 Ibuprofen (Motrin) 600 mg PRN Q6HRS PRN PO INFLAMMATION; Start 03/02/18 at 15: 15; Stop 03/02/18 at 19:37; Status DC Nitroglycerin (Nitrostat) 0.4 mg 1X STAT SL ; Start 03/02/18 at 15:10; Stop at 15:13; Status DC Aspirin (Leopoldo Aspirin) 325 mg DAILYWBKFT PO ; Start 03/03/18 at 08:00 Ibuprofen (Motrin) 600 mg PRN Q6HRS PRN PO INFLAMMATION; Start 03/02/18 at 19: 45 Regadenoson (Lexiscan) 0.4 mg 1X ONCE IV Last administered on 03/03/18at 11:23 ; Start 03/03/18 at 10:15; Stop 03/03/18 at 10:16; Status DC Active Scripts Active Reported Colace (Docusate Sodium) 100 Mg Capsule 100 Mg PO BID Zofran Odt (Ondansetron) 4 Mg Tab.rapdis 1 Tab SL TID PRN Percocet 5-325 Mg Tablet (Oxycodone/Acetaminophen) 1 Each Tablet 2 Tab PO PRN Q6HRS PRN Vitals/I & O Vital Sign - Last 24 Hours 03/02/18 03/02/18 03/02/18 03/02/18 13:25 13:45 14:30 16:00 Temp 97.5 97.5 Pulse 92 88 87 89 Resp 18 18 16 16 B/P (MAP) 167/96 (119) 131/80 (97) 120/77 (91) 134/84 (101) Pulse Ox 99 100 100 100 O2 Delivery Room Air Room Air Room Air Room Air 03/02/18 03/02/18 03/02/18 03/03/18 16:05 19:20 23:25 03:15 Temp 99.1 98.7 98.5 99.1 98.7 98.5 Pulse 84 89 92 Resp 18 20 20 B/P (MAP) 145/103 (117) 141/89 (106) 135/84 (101) Pulse Ox 100 99 92 O2 Delivery Room Air Room Air Room Air Room Air 03/03/18 03/03/18 03/03/18 07:00 07:30 09:03 Temp 98.1 98.1 Pulse 85 Resp 16 B/P (MAP) 141/92 (108) Pulse Ox 96 O2 Delivery Room Air Room Air Room Air Intake and Output 03/02/18 03/02/18 03/03/18 15:00 23:00 07:00 Intake Total 200 ml 800 ml Balance 200 ml 800 ml SCOOBY ENAMORADO III DO Mar 03, 2018 11:49
--- NOTE | 2018-03-03 13:47 | RAD ---
MR#: [id number] Date of Study: 03/03/2018 Ordering Physician: JAMAICA HAMILTON, Referring Physician: LAMONT CASTILLO Tech: HAIDER Sykes ARRT (R) (N) APPROVED REPORT Test Type: Pharmacological Stress Nurse/Tech: Vicki Fierro R.N. Test Indications: svt Cardiac History: none Medications: see ehr Medical History: see ehr Resting ECG: SR Resting Heart Rate: 80 bpm Resting Blood Pressure: 131/85mmHg Pretest Chest Pain: No chest pain Nurse/Tech Notes lungs cta, heart tones regular, good radial pulse Consent: The procedure was explained to the patient in lay terms. Informed consent was witnessed. Jeffery eout was entered into [employer]. History and Stress Test performed by HAIDER Sykes ARRT (R) (N) Pharm. Details Pharmacologic stress testing was performed using 0.4mg per 5ml of regadenoson given intravenously ove r 7-10 seconds. Stress Symptoms No chest pain or symptoms. POST EXERCISE Reason for Termination: Infusion complete Target HR: No Max HR: 122 bpm Max Blood Pressure: 143/81mmHg Chest Pain: No. Arrhythmia: No. ST Change: No. INTERPRETATION Stress EKG Conclusion: Baseline EKG showed sinus rhythm. No ischemic changes at peak stress. No arr hythmias. Imaging Protocol IMAGE PROTOCOL: Rest Tc-99m/stress Tc-99m 1 day Rest: Stress: Viability: Radiopharm.Tc99m [id number] Sestamibi Dose11.6mCi 33.2mCi Img Date 03/03/2018 03/03/2018 Inj-Img [id number]. 60min. Rest Admin Site:IV - Left AntecubitalAdministrator:CASEY Capellan Stress Admin Site: IV - Left AntecubitalAdministrator: HAIDER Sykes ARRT (R)(N) STRESS DATA End Diast. Vol.61.0mlAv. Heart Rate85.0bpm End Syst. Vol.11.0mlCO Index BSA4.3L/min Myocardial Lrrb581.0gEject. Tvavgikg18.0% Stress Rates Pk. Fill Rate3.97EDV/secLVtime Pk. Fill 157.66msec Pk. Empty Rate5.90ESV/secLVtime Pk. Wmtxz071.53msec 1/3 Pk. Fill2.08EDV/sec Stress Scores Regional WT1.00Summed WT3.00 Regional WM0.00Summed WM0.00 Study quality was good. Left Ventricular size was Normal at Rest and Stress. Lung uptake was . Left Ventricular ejection fraction is 82%. The rest and stress images show normal perfusion, normal contraction and thickening. LV Perf. Quant 17 Seg. SSS0.00 17 Seg. SRS1.00 17 Seg. SDS0.00 Stress Defect Extent (% LAD)0.00Rest Defect Extent (% LAD)4.40Rev. Defect Extent (% LAD)0.00 Stress Defect Extent (% LCX) 0.00Rest Defect Extent (% LCX)0.00Rev. Defect Extent (% LCX)0.00 Stress Defect Extent (% RCA)0.00Rest Defect Extent (% RCA)0.00Rev. Defect Extent (% RCA)0.00 Stress Defect Extent (% KEVON)0.00Rest Defect Extent (% KEVON)1.70Rev. Defect Extent (% KEVON)0.00 Conclusion 1. Regadenoson cardioisotope stress test did not show any evidence of ischemia or infarct. 2. Normal left ventricular systolic function with ejection fraction calculated at 82%. 3. Low risk for cardiac events. Signed by : Hu Fam, Electronically Approved : 03/03/2018 13:46:44
[2018-03-03 15:27] VITALS: BP 176/107
== END 2018-03-03 16:40 | disposition home or self-care (01) | DRG 310 ==
LOC: ER 13:20 → 1 WEST ICU 15:00 → 2 SOUTH 19:18
PROVIDERS: ADMIT Internal Medicine; ATTEND Internal Medicine
DX: I47.1 Supraventricular tachycardia (principal); I10 Essential (primary) hypertension; R07.9 Chest pain, unspecified; Z82.49 Family history of ischemic heart disease and other diseases of the circulatory system; Z79.899 Other long term (current) drug therapy; Z90.721 Acquired absence of ovaries, unilateral; Z87.81 Personal history of (healed) traumatic fracture
CPT/HCPCS: 36415; 71045; 78452; 80053; 80307; 81025; 82550; 82962; 83735; 84443; 84484; 85025; 85610; 93005; 93017; 93306; 96361; 96374; 96375; 96376; A9500; J2785; J7040; 99285-25; G0479

== ENCOUNTER 2021-02-15 16:54 | Emergency (ER) | payer BC ==
[~2021-02-15] VITALS: Ht 170.2 cm; Wt 100.0 kg
[~2021-02-15 16:54] MED LIST changes: -HYDR-2758 PO; +HYDR-2761 PO; -OXYC-323 PO; +OXYC1TAB15 PO
--- NOTE | 2021-02-15 17:10 | PHYS DOC ---
Past Medical History Past Medical History: No Pertinent History (BABATUNDE SANTIAGO DO) Past Surgical History: Oophorectomy Additional Past Surgical Histo: Rt hip (BBAATUNDE SANTIAGO DO) Smoking Status: Never Smoker Alcohol Use: None Drug Use: None (BABATUNDE SANTIAGO DO) General Adult EDM: Chief Complaint: CHEST PAIN HPI: HPI: 45-year-old female with a history of hypertension presents to the emergency department complaining of chest pain in the left side of her chest that started about 90 minutes prior to arrival while she was sitting at her desk at work. She reports that the pain is sharp, nonradiating, made worse by movement of her torso and left arm. The patient denies radiation of pain, sweating, shortness of air, nausea, vomiting, palpitations or dizziness. (BABATUNDE SANTIAGO DO) Review of Systems: Review of Systems: Constitutional: Denies fever or chills. Eyes: Denies change in vision, pain. HENT: Denies congestion or sore throat. Respiratory: Denies cough or shortness of breath. Cardiovascular: Admits to chest pain, denies edema. GI: Denies abdominal pain, nausea. : Denies change in urination, dysuria. Musculoskeletal: Denies extremity pain, or trauma. Skin: Denies rash, skin change. Neurologic: Denies headache, focal weakness. Psychiatric: Denies depression or anxiety. All other systems reviewed as negative except for what was mentioned in the HPI. (BABATUNDE SANTIAGO DO) Heart Score: C/O Chest Pain: Yes HEART Score for Chest Pain: HEART Score for Chest Pain Response (Comments) Value History Slighlty/Non-Suspicious 0 ECG Normal 0 Age >45 - < 65 1 Risk Factors 1 or 2 Risk Factors 1 Troponin < Normal Limit 0 Total 2 (BABATUNDE SANTIAGO DO) C/O Chest Pain: Yes HEART Score for Chest Pain: HEART Score for Chest Pain Response (Comments) Value History Slighlty/Non-Suspicious 0 ECG Normal 0 Age < 45 0 Risk Factors 1 or 2 Risk Factors 1 Troponin < Normal Limit 0 Total 1 (LATRICE HUBBARD DO) Allergies: Allergies: Allergies Coded Allergies Type Severity Reaction Last Updated Verified No Known Drug Allergies 01/10/15 No (BABATUNDE SANTIAGO DO) Physical Exam: PE: Constitutional: No acute distress, non-toxic appearance. HENT: Atraumatic, bilateral external ears normal, nose normal. Eyes: PERRLA, EOMI, conjunctiva normal, no discharge. Neck: Normal range of motion, supple, no stridor. Cardiovascular: Heart rate regular rhythm. 2+ radial pulses Lungs & Thorax: No respiratory distress, symmetrical expansion. Bilateral breath sounds clear to auscultation Abdomen: Soft, no tenderness Skin: Warm, dry. Extremities: No tenderness, no cyanosis, ROM intact, no edema. Neurologic: Alert and oriented X 3, normal motor function, normal sensory function, no focal deficits noted. Non ataxic gait. GCS 15. Psychologic: Affect normal, judgment normal, mood normal. (BABATUNDE SANTIAGO ) Current Patient Data: Vital Signs: Vital Signs Date Time Temp Pulse Resp B/P (MAP) Pulse Ox O2 Delivery O2 Flow Rate FiO2 02/15/21 17:00 98.5 76 16 182/96 (130) 100 Room Air 98.5 (BABATUNDE SANTIAGO [facility]) Labs: Laboratory Tests Test 02/15/21 17:11 02/15/21 17:29 02/15/21 20:09 White Blood Count 5.1 x10^3/uL Red Blood Count 4.40 x10^6/uL Hemoglobin 12.1 g/dL Hematocrit 36.1 % Mean Corpuscular Volume 82 fL Mean Corpuscular Hemoglobin 28 pg Mean Corpuscular Hemoglobin Concent 34 g/dL Red Cell Distribution Width 13.9 % Platelet Count 290 x10^3/uL Neutrophils (%) (Auto) 49 % Lymphocytes (%) (Auto) 40 % Monocytes (%) (Auto) 8 % Eosinophils (%) (Auto) 3 % Basophils (%) (Auto) 1 % Neutrophils # (Auto) 2.5 x10^3/uL Lymphocytes # (Auto) 2.0 x10^3/uL Monocytes # (Auto) 0.4 x10^3/uL Eosinophils # (Auto) 0.2 x10^3/uL Basophils # (Auto) 0.0 x10^3/uL Sodium Level 140 mmol/L Potassium Level 3.4 mmol/L Chloride Level 103 mmol/L Carbon Dioxide Level 29 mmol/L Anion Gap 8 Blood Urea Nitrogen 9 mg/dL Creatinine 1.1 mg/dL Estimated GFR (Cockcroft-Gault) 64.4 Glucose Level 91 mg/dL Calcium Level 9.4 mg/dL Magnesium Level 2.2 mg/dL Troponin I Quantitative < 0.017 ng/mL < 0.017 ng/mL QZ-Tei-M-Type Natriuretic Peptide 62 pg/mL Lipase 241 U/L Bedside Urine HCG, Qualitative Hcg negative Current Medications Medications (Trade) Dose Ordered Sig/Eze Route PRN Reason Start Time Stop Time Status Last Admin Dose Admin Ketorolac Tromethamine (Toradol 15mg Vial) 15 mg 1X ONCE IVP 02/15/21 18:00 02/15/21 18:01 DC 02/15/21 18:20 (LATRICE HUBBARD DO) EKG: EKG: Normal sinus rhythm rate of 74, no ST-T wave changes, no ectopic beats, normal axis, normal NC, QRS, and QTc intervals. Impression: Normal EKG. interpreted by Babatunde mandujano D.O. (BABATUNDE SANTIAGO DO) Radiology/Procedures: Radiology/Procedures: PROCEDURE: PORTABLE CHEST 1V EXAMINATION: Chest radiograph. VIEWS: Single view COMPARISON: None INDICATION:45 years, Female, chest pain. FINDINGS: Normal cardiomediastinal silhouette. No focal consolidation. No pleural effusion or pneumothorax. No acute osseous process. IMPRESSION: No acute cardiopulmonary process. Electronically signed by: Rell Kaplan MD (02/15/2021 7:06 PM) (BABATUNDE SANTIAGO DO) Radiology/Procedures: [facility] [address] [place] [address] IMAGING REPORT Signed PATIENT: EUGENIO GURROLA ACCOUNT: [id number] : 1975 LOCATION: ER AGE: 45 SEX: F EXAM STATUS: REG ER ORD. PHYSICIAN: BABATUNDE SANTIAGO DO REASON: chest pain PROCEDURE: PORTABLE CHEST 1V EXAMINATION: Chest radiograph. VIEWS: Single view COMPARISON: None INDICATION:45 years, Female, chest pain. FINDINGS: Normal cardiomediastinal silhouette. No focal consolidation. No pleural effusion or pneumothorax. No acute osseous process. IMPRESSION: No acute cardiopulmonary process. Electronically signed by: Rell Kaplan MD (02/15/2021 7:06 PM) [facility] DICTATED and SIGNED BY: RELL KAPLAN MD DATE: 02/15/21 [id number] (LATRICE HUBBARD DO) Course & Med Decision Making: Course & Med Decision Making Patient with heart score 2 prior to troponin draw, patient's chest pain started about 90 minutes prior to arrival, we will obtain a 2 set troponin and EKG and then dispo after that. Patient signed out to Dr. Hubbard at 1800, pending diagnostics. Patient was counseled on her blood pressure during my initial assessment (BABATUNDE SANTIAGO DO) Course & Med Decision Making Patient is a 45-year-old female who present to ER due to chest pain, her blood pressure was elevated, patient has history of hypertension, she is on medication for. EKG and lab work did not show any acute problem. Patient would like to go home. Her heart score was low, low risk for having coronary artery disease. Patient be discharged home, she will recommend to follow-up with her family physician this week for reevaluation of her blood pressure. (LATRICE HUBBARD DO) Departure Departure Impression: Primary Impression: Chest pain Additional Impression: Hypertension Disposition: HOME / SELF CARE / HOMELESS Condition: STABLE Referrals: NO PCP (PCP) Follow-up with your doctor this week for reevaluation. Patient Instructions: Chest Pain (Nonspecific), Hypertension Additional Instructions: Thank you for visiting our Emergency Department. We appreciate you trusting us with your care. If any additional problems come up don't hesitate to return to visit us. Please follow up with your primary care provider so they can plan additional care if needed and know about the problem that you had. If symptoms worsen come back to the Emergency Department. Any concerning symptoms that start such as chest pain, shortness of air, weakness or numbness on one side of the body, running high fevers or any other concerning symptoms return to the ER. BABATUNDE SANTIAGO DO Feb 15, 2021 17:10 LATRICE HUBBARD DO Feb 15, 2021 21:19
[2021-02-15] MEDS ORDERED: KETOROLAC 15 MG/ML VIAL. IVP ONE (18:00)
[2021-02-15 18:02] LABS: BASO % 1 % (0-3); EOS # 0.2 x10^3/uL (0.0-0.7); EOS % 3 % (0-3); HEMATOCRIT 36.1 % (36.0-47.0); HEMOGLOBIN 12.1 g/dL (12.0-15.5); LYMPH % 40 % (24-48); MEAN CORPUSCULAR HEMOGLOBIN 28 pg (25-35); MEAN CORPUSCULAR HGB CONC 34 g/dL (31-37); MEAN CORPUSCULAR VOLUME 82 fL (79-100); MONO # 0.4 x10^3/uL (0.0-1.1); MONO % 8 % (0-9); NEUT # 2.5 x10^3/uL (1.8-7.7); NEUT % 49 % (31-73); PLATELET COUNT 290 x10^3/uL (140-400); RED CELL DISTRIBUTION WIDTH 13.9 % (11.5-14.5); WHITE BLOOD COUNT 5.1 x10^3/uL (4.0-11.0)
[2021-02-15 18:13] LABS: CALCIUM 9.4 mg/dL (8.5-10.1); CREATININE 1.1 mg/dL (0.6-1.0); GFR 64.4; POTASSIUM 3.4 mmol/L (3.5-5.1)
[2021-02-15 18:47] LABS: MAGNESIUM 2.2 mg/dL (1.8-2.4)
--- NOTE | 2021-02-15 19:09 | RAD ---
EXAMINATION: Chest radiograph. VIEWS: Single view COMPARISON: None INDICATION:45 years, Female, chest pain. FINDINGS: Normal cardiomediastinal silhouette. No focal consolidation. No pleural effusion or pneumothorax. No acute osseous process. IMPRESSION: No acute cardiopulmonary process. Electronically signed by: Theo Kaplan MD (02/15/2021 7:06 PM) [facility]
[2021-02-15 21:20] VITALS: BP 192/107
== END 2021-02-15 21:30 | disposition home or self-care (01) ==
LOC: ER 16:54
DX: R07.89 Other chest pain (principal); I10 Essential (primary) hypertension; M79.602 Pain in left arm
CPT/HCPCS: 36415; 71045; 80048; 81025; 83690; 83735; 83880; 84484; 85025; 93005; 96374; 99285; J1885